=== PATIENT | male | born 1995 | race African-American/Black ===

== ENCOUNTER 2018-11-28 17:30 | Emergency (ER) | payer OTHER ==
[~2018-11-28] VITALS: Ht 175.3 cm; Wt 95.3 kg
[2018-11-28] MEDS ORDERED: MIRALAX17 GM PO (18:25)
[2018-11-28 18:27] VITALS: BP 109/69
== END 2018-11-28 18:27 | disposition home or self-care (01) ==
LOC: ER 17:30
DX: K59.00 Constipation, unspecified (principal); K64.9 Unspecified hemorrhoids

== ENCOUNTER 2018-11-29 19:52 | Emergency (ER) | payer OTHER ==
[~2018-11-29] VITALS: Ht 185.4 cm; Wt 83.9 kg
[~2018-11-29 19:52] MED LIST: MIRALAX17 GM PO
[2018-11-29 22:29] VITALS: BP 122/75
== END 2018-11-29 22:31 | disposition home or self-care (01) ==
LOC: ER 19:52
DX: K59.00 Constipation, unspecified (principal); K64.9 Unspecified hemorrhoids